=== PATIENT | male | born 1960 | race Two or more races ===

== ENCOUNTER 2020-10-02 10:25 | Emergency (ER) | payer MEDICAID ==
[~2020-10-02] VITALS: Ht 167.6 cm; Wt 100.0 kg
[2020-10-02 10:35] VITALS: BP 134/95
[2020-10-02] MEDS ORDERED: KETOROLAC TROMETHAMINE 60 MG/2 ML VIAL IM ONE (13:00)
[2020-10-02] MEDS ORDERED: BACLOFEN 10 MG TABLET PO ONE (13:00)
== END 2020-10-02 15:13 | disposition home or self-care (01) ==
LOC: EMS 10:53
DX: M54.31 Sciatica, right side (principal)
CPT/HCPCS: 72100; 96372; 99283; J1885